=== PATIENT | male | born 1950 | race Caucasian/White ===

== ENCOUNTER 2017-03-19 07:19 | Day surgery (SDC) | payer OTHER ==
--- NOTE | ~2017-03-19 | EGD ---
EGD REPORT [facility] [address] [address] NAME: TAZ SORENSON : [birth year] STATUS : REG [facility] [place] PAT#: [id number] AGE: 66 ADM/REG DATE : 03/19/17 MR#: [id number] REPORT SERV DATE: 03/19/17 DICTATED BY: ALEXANDRA MASON DATE: 03/19/17 REPORT STATUS : Draft TRANSCRIBED BY: [employer] DATE: 03/19/17 Endoscopy Center Patient Name: Tza Sorenson Date of : 1950 Attending MD: ALEXANDRA MASON, Procedure Date No Time: 03/19/2017 Procedure: Colonoscopy Indications: Iron deficiency anemia Referring MD: DIONICIO FENTON Medicines: Monitored Anesthesia Care Complications: No immediate complications. Estimated blood loss: None. Procedure: Pre-Anesthesia Assessment: - ASA Grade Assessment: III - A patient with severe systemic disease. After I obtained informed consent, the scope was passed under direct vision. Throughout the procedure, the patient's blood pressure, pulse, and oxygen saturations were monitored continuously. The CF [id number] was introduced through the anus and advanced to the cecum, identified by appendiceal orifice and ileocecal valve. The colonoscopy was performed without difficulty. The patient tolerated the procedure well. The quality of the bowel preparation was fair. Findings: The perianal and digital rectal examinations were normal. Semi-solid stool was found in the entire colon. The exam was otherwise without abnormality. Impression: - Stool in the entire examined colon. - The examination was otherwise normal. Recommendation: - Patient has a contact number available for emergencies. The signs and symptoms of potential delayed complications were discussed with the patient. Return to normal activities tomorrow. Written discharge instructions were provided to the patient. - Return to previous diet. - Continue present medications. - Repeat colonoscopy in 5 years for screening purposes. Procedure Code(s): --- Professional --- 09540, Colonoscopy, flexible, proximal to splenic flexure; diagnostic, with or without collection of specimen(s) by brushing or washing, with or without EGD REPORT [address] [address] NAME: TAZ SORENSON : [birth year] STATUS : REG [facility]#: [id number] AGE: 66 ADM/REG DATE : 03/19/17 MR#: [id number] REPORT SERV DATE: 03/19/17 DICTATED BY: ALEXANDRA MASON DATE: 03/19/17 REPORT STATUS : Draft TRANSCRIBED BY: [employer] DATE: 03/19/17 colon decompression (separate procedure) Diagnosis Code(s): --- Professional --- D50.9, Iron deficiency anemia, unspecified CPT copyright 2013 [employer] [employer]. All rights reserved. The codes documented in this report are preliminary and upon deicer element winder machine review may be revised to meet current compliance requirements. ALEXANDRA MASON, 03/19/2017 8:55 AM Number of Addenda: 0 Note Initiated On: 03/19/2017 8:21 AM Scope Withdrawal Time 0 hours 10 minutes 51 seconds
--- NOTE | ~2017-03-19 | EGD ---
EGD REPORT [facility] [address] [address] NAME: TAZ SORENSON : [birth year] [place]US [place] [facility] [place]#: [id number] AGE: 66 ADM/REG DATE : 03/19/17 MR#: [id number] REPORT SERV DATE: 03/19/17 DICTATED BY: ALEXANDRA MASON DATE: 03/19/17 REPORT STATUS : Draft [facility] DATE: 03/19/17 Endoscopy Center Patient Name: Taz Sorenson Date of : 1950 Attending MD: ALEXANDRA MASON, Procedure Date No Time: 03/19/2017 Procedure: Upper GI endoscopy Indications: Follow-up of Rutledge's esophagus Referring MD: DIONICIO FENTON Medicines: Monitored Anesthesia Care Complications: No immediate complications. Estimated blood loss: None. Procedure: Pre-Anesthesia Assessment: - ASA Grade Assessment: III - A patient with severe systemic disease. After obtaining informed consent, the endoscope was passed under direct vision. Throughout the procedure, the patient's blood pressure, pulse, and oxygen saturations were monitored continuously. The GIF [id number] was introduced through the mouth, and advanced to the second part of duodenum. The upper GI endoscopy was accomplished without difficulty. The patient tolerated the procedure well. Findings: The esophagus and gastroesophageal junction were examined with white light from a forward view and retroflexed position. Rutledge's esophagus was present, extending from the upper extent of the gastric folds which were at 39 cm from the incisors to the Z-line which was at 39 cm from the incisors. One tongue of salmon-colored mucosa was present from 38 to 39 cm. The maximum longitudinal extent of these esophageal mucosal changes was 1 cm in length. Biopsies were taken with a cold forceps for histology. Verification of patient identification for the specimen was done. Estimated blood loss was minimal. The exam of the esophagus was otherwise normal. The stomach was normal. The cardia and gastric fundus were normal on retroflexion. The examined duodenum was normal. Impression: - Rutledge's esophagus. Biopsied. - Normal stomach. - Normal examined duodenum. Recommendation: - Patient has a contact number available for emergencies. The signs and symptoms of potential delayed complications were discussed with the patient. Return to EGD REPORT [address] [address] NAME: TAZ SORENSON : [birth year] [place]US [place] [facility] [place]#: [id number] AGE: 66 ADM/REG DATE : 03/19/17 MR#: [id number] REPORT SERV DATE: 03/19/17 DICTATED BY: ALEXANDRA MASON DATE: 03/19/17 REPORT STATUS : Draft TRANSCRIBED BY: [employer] DATE: 03/19/17 normal activities tomorrow. Written discharge instructions were provided to the patient. - Return to previous diet. - Continue present medications. - Await pathology results. - Repeat the upper endoscopy for surveillance based on pathology results. Procedure Code(s): --- Professional --- 89151, Esophagogastroduodenoscopy, flexible, transoral; with biopsy, single or multiple Diagnosis Code(s): --- Professional --- K22.70, Rutledge's esophagus without dysplasia CPT copyright 2013 [employer]. All rights reserved. The codes documented in this report are preliminary and upon slurry man review may be revised to meet current compliance requirements. ALEXANDRA MASON, 03/19/2017 8:54 AM Number of Addenda: 0 Note Initiated On: 03/19/2017 8:26 AM Scope Withdrawal Time 0 hours 0 minutes 0 seconds [address] [place] [address]
[~2017-03-19 07:19] MED LIST: ACTOS30 PO; ASAB PO; B121000P IM; COREG6 PO; FERROUS SULF325 M1 PO; FLOMAX4 PO; GLUCPH8 PO; GLUCXL2.5 PO; I10 PO; LIPITOR10 PO; MICRONASE2.5 MG PO; PRILOSEC40 MG PO; REM15 PO; SPIRO50 PO; TRILIPIX135 MG PO; VITAMIN D31000 UNIT PO
== END 2017-03-19 23:59 | disposition home or self-care (01) ==
LOC: DMU 07:19
PROVIDERS: Internal Medicine Gastroenterology
PROC: 0DJD8ZZ Inspection of Lower Intestinal Tract, Via Natural or Artificial Opening Endoscopic (ICD-10-PCS; 2017-03-19)
PROC: 0DB58ZX Excision of Esophagus, Via Natural or Artificial Opening Endoscopic, Diagnostic (ICD-10-PCS; principal; 2017-03-19 09:00)
PROC: 0DB48ZX Excision of Esophagogastric Junction, Via Natural or Artificial Opening Endoscopic, Diagnostic (ICD-10-PCS; 2017-03-19 09:00)
DX: K22.70 Barrett's esophagus without dysplasia (principal); D50.9 Iron deficiency anemia, unspecified; I25.10 Atherosclerotic heart disease of native coronary artery without angina pectoris; E11.22 Type 2 diabetes mellitus with diabetic chronic kidney disease; I12.9 Hypertensive chronic kidney disease with stage 1 through stage 4 chronic kidney disease, or unspecified chronic kidney disease; M19.90 Unspecified osteoarthritis, unspecified site; E78.00 Pure hypercholesterolemia, unspecified; K85.90 Acute pancreatitis without necrosis or infection, unspecified; N40.0 Benign prostatic hyperplasia without lower urinary tract symptoms; H91.90 Unspecified hearing loss, unspecified ear; K21.9 Gastro-esophageal reflux disease without esophagitis; N18.9 Chronic kidney disease, unspecified; Z98.890 Other specified postprocedural states; Z98.42 Cataract extraction status, left eye; Z90.89 Acquired absence of other organs; Z96.1 Presence of intraocular lens; Z88.0 Allergy status to penicillin; Z87.891 Personal history of nicotine dependence
CPT/HCPCS: 82962; 88305